=== PATIENT | female | born 1995 | race Caucasian/White ===

== ENCOUNTER 2018-01-29 21:07 | Emergency (ER) | payer SELFPAY ==
[2018-01-29 21:08] VITALS: BP 151/104; PULSE 120; RESP 18; TEMP 35.5; O2SAT 98; BMI 45.3
--- NOTE | 2018-01-29 22:01 | ED.RN ---
NO OLD EKGS IN MUSE
[2018-01-29] MEDS: 0.9% Normal Saline 1,000 ML 1000 ML IV (22:22)
[2018-01-29 22:29] LABS: Absolute Lymphocyte Count 2.66 X10^3/ul (0.83-4.51); Absolute Neutrophil Count 5.3 X10^3/uL (2.0-7.7); Basophil# 0.03 X10^3/uL; Basophil% 0.3 % (0-1); Eosinophil# 0.28 X10^3/uL; Eosinophils% 3.1 % (0-5); Hematocrit 37.4 % (37-47); Hemoglobin 11.4 g/dl (12.0-15.0); Lymphocyte # 2.66 X10^3/ul (4.0); Lymphocyte % 29.8 % (19-41); Mean Corp Hgb Conc 30.5 g/gl (32-36); Mean Corpuscular Volume 85.2 fL (81-99); Mean Platelet Vol. 10.8 fl (6.2-12.0); Monocyte# 0.67 X10^3/uL; Monocyte% 7.5 % (0-10); Neutrophil # 5.27 X10^3/uL (2.7-7.7); Neutrophil % 59.2 % (47-70); POSITIVE COUNT NO; POSITIVE DIFFERENTIAL NO; POSITIVE MORPHOLOGY NO; Platelet Count 266 K/mm3 (150-450); RBC Distribution Width SD 50.1 fl (35.1-43.9); Red Blood Count 4.39 M/mm3 (4.2-5.4); White Blood Count 8.9 K/mm3 (4.4-11.0)
[2018-01-29 22:43] LABS: Anion Gap 9 (5-15); BUN 10 mg/dL (7-18); BUN/Creat Ratio 13.5 RATIO (10-20); Calcium,Total 8.5 mg/dL (8.5-10.1); Chloride 107 mmol/L (98-107); Creatinine, Serum 0.74 mg/dL (0.55-1.02); EST Glomerular Filtration Rate 105 mL/min (>60); Est Glom Filt Rate - Afr Amer 127 mL/min (>60); Estimated Creatinine Clearance 95.11 ml/min; Glucose 100 mg/dL (74-106); Potassium 3.7 mmol/L (3.5-5.1); Sodium Level 142 mmol/L (136-145)
[2018-01-29 23:24] LABS: Bacteria 0 SEEN /hpf (None Seen); Mucous, Urine 0 SEEN /hpf (<or=2+); Red Blood Cells-Urine 0 SEEN /hpf (0-5)
[2018-01-29 23:40] LABS: Color, Urine Yellow (Yellow); Glucose, Dipstick Normal (Normal); Ketone-Dipstick 5 mg/dl (Negative); Leukocyte Esterase-Dipstick 100 /ul (Negative); Nitrite-Dipstick Negative (Negative); Occult Blood-Urine Negative /ul (Negative); Protein-Dipstick 15 mg/dl (Negative); Urine Bilirubin Dipstick Negative (Negative); Urine Clarity Sl. Cloudy (Clear); Urine Urobilinogen 1 mg/dl (Normal)
[2018-01-29 23:46] LABS: Squamous Epithelial Cells - UA 0-5 SEEN /hpf (5-10); White Blood Cells 5-10 SEEN /hpf (0-5)
--- NOTE | 2018-01-29 23:51 | ED.VISSUMM ---
- ER Visit Summary Date of Service: 01/29/18 Chief Complaint: Dizziness History of Present Illness: The patient is a 22 F that presents with dizziness. She describes it as a lightheadedness and feeling like she is going to pass out. Symptoms started yesterday and then continued today. Associated with nausea and vomiting. Denies chest pain or shortness of breath. Denies fevers, neck pain, or rash. Denies any abdominal pain or diarrhea. Denies urinary symptoms. Patient is concerned she might have low blood sugar or anemia. Physical Examination: Afebrile. Blood pressure 151/104. Heart rate 120. Otherwise vitals unremarkable. Patient appears in no acute distress. Alert and oriented. Her. Abdomen soft and nontender. Skin appears normal. No focal or lateralizing neurologic abnormalities. Test Results: EKG showed sinus rhythm at a rate of 88. No sign of acute ischemia or infarction pattern. Hemoglobin 11.4. Otherwise CBC and BMP normal. Troponin normal. test pending. Urinalysis shows signs of infection. Emergency Department Course and Treatment: Patient presents with nonspecific near syncope/lightheadedness. She is healthy and has no red flag symptoms. Her workup here was unremarkable except for signs of urine infection. Patient treated with IV fluids and Macrobid. She ambulated without difficulty. Symptoms improved. Patient will be referred for outpatient follow-up. Given a prescription for Macrobid. Return for any new or worsening symptoms. Lab had some difficulty running a test because it was a preserved specimen. They were requesting additional urine sample. The patient is not concerned for . She does not want to wait to give another sample. Patient will be discharged with a prescription for Macrobid. Follow-up with primary care. Return for any new or worsening issues. Treatment Plan: As above Disposition: Discharge Impression: 1. Near syncope 2. UTI, cystitis This note was generated with SafeTool dictation software. It may contain incorrect words, spelling, and punctuation that were not noted in review of the chart prior to signing ED Disposition - Plan for ED Patient: Chief Complaint: General Illness Instructions: ED UTI Cystitis Female Prescriptions: Nitrofurantoin Macrocrystals [Macrobid] 100 mg PO Q12 #10 cap Referrals: Rosario Montalvo NP-C [Primary Care Provider] -
--- NOTE | 2018-01-29 23:53 | ED.DEP ---
ED Disposition - Plan for ED Patient: Chief Complaint: General Illness Instructions: ED UTI Cystitis Female Prescriptions: Nitrofurantoin Macrocrystals [Macrobid] 100 mg PO Q12 #10 cap Referrals: Rosario Montalvo NP-C [Primary Care Provider] -
[2018-01-30] MEDS: Nitrofurantoin Macrocrystals 100 MG Capsule PO (00:02)
[2018-01-30 00:04] VITALS: BP 138/87; PULSE 79; RESP 16; O2SAT 97
== END 2018-01-30 00:06 | disposition home or self-care (01) ==
LOC: ED 22:26
PROVIDERS: Emergency Provider Emergency Medicine; Family Provider Nurse Practitioner Family; PCP Nurse Practitioner Family
DX: R55 Syncope and collapse (principal); N39.0 Urinary tract infection, site not specified; J45.909 Unspecified asthma, uncomplicated; D64.9 Anemia, unspecified; Z90.49 Acquired absence of other specified parts of digestive tract
CPT/HCPCS: 80048; 81001; 84484; 85025; 93005; 96360; 96361; 99283; J7030

== ENCOUNTER 2018-06-18 20:29 | Emergency (ER) | payer MEDICAID, SELFPAY ==
[2018-06-18 20:32] VITALS: BP 164/119; PULSE 115; RESP 16; TEMP 37.3; O2SAT 98; BMI 45.4
[2018-06-18 21:11] VITALS: BP 151/106; PULSE 104; RESP 14; O2SAT 96
--- NOTE | 2018-06-18 21:40 | ED.VISSUMM ---
- ER Visit Summary Date of Service: 06/18/18 Chief Complaint: Vomiting diarrhea History of Present Illness: The patient is a 22 F who presents with 3 days of vomiting diarrhea. Patient states that the symptoms began on Sunday with diarrhea. Yesterday she had vomiting. Significant other states that he has the same symptoms but not as severe. Patient notes a history of GERD and has had a cholecystectomy. No blood in the stool. No fevers. Physical Examination: Afebrile vital signs are stable noted slight tachycardia at 106. Gen: Well-nourished well-developed Head: Normocephalic atraumatic Eyes: Perrl EOMI ENT: TMs clear no rhinorrhea moist mucous membranes and has color in her cheeks. Neck: Supple no lymphadenopathy no JVD nontender CVS: Regular rate rhythm no murmurs normal S1-S2 Respiratory: No distress clear to auscultation bilaterally chest nontender Abdomen: Soft nontender nondistended normal bowel sounds no masses Back: Nontender Extremity: Nontender no edema Skin: Normal color no rash Neuro: alert orientated ?3 CN II-XII intact normal strength sensation reflexes gait cerebellar Psych: Normal affect normal mood Emergency Department Course and Treatment: Patient received IV fluids and Zofran. Patient passed p.o. challenge. patient will have prescription for Zofran. She will continue to try to orally hydrate. Follow-up with primary care return if worsening or concerns Impression: 1. Viral gastroenteritis 2. Mild dehydration This note was generated with Exabre dictation software. It may contain incorrect words, spelling, and punctuation that were not noted in review of the chart prior to signing ED Disposition - Plan for ED Patient: Disposition: Home or Assisted Living Chief Complaint: Nausea/Vomiting/Diarrhea Instructions: ED Gastroenteritis Viral Prescriptions: Ondansetron [Zofran Odt] 4 mg PO Q6H PRN PRN #14 tab PRN Reason: Nausea Referrals: Rosario Montalvo NP-C [Primary Care Provider] - As Needed
[2018-06-18] MEDS: 0.9% Normal Saline 1,000 ML 1000 ML IV (22:10)
[2018-06-18] MEDS: Ondansetron 4 MG/2 ML Vial IV (22:11)
[2018-06-18 23:07] VITALS: BP 129/79; PULSE 75; RESP 16
== END 2018-06-18 23:07 | disposition home or self-care (01) ==
PROVIDERS: Emergency Provider Emergency Medicine; Family Provider Nurse Practitioner Family; PCP Nurse Practitioner Family
DX: A08.4 Viral intestinal infection, unspecified (principal); E86.0 Dehydration; K21.9 Gastro-esophageal reflux disease without esophagitis; Z90.49 Acquired absence of other specified parts of digestive tract
CPT/HCPCS: 96361; 96374; 99283; J7030; A4216; J2405

== ENCOUNTER 2025-03-01 11:58 | Emergency (ER) | payer MEDICAID, SELFPAY ==
--- OUTSIDE RECORDS SUMMARY | 2025-03-01 11:30 | XMS RPT_ITS ---
Author Name [employer] Organization OHIP PROBLEMS No Problem Records Found PROCEDURES No Procedure Records Found RESULTS CNOV Observed: 03/01/2025 11:45 AM Status: COMPLETED Source: [facility] Office Visit ([place]) LYUDMILA HOPKINS ([id number]) 1995 F Date Time Provider Department 03/01/25 11:45 AM VERONICA SILVER During your visit today, we recorded the following information about you: Temperature Pulse Respiration Blood pressure 97.8 degrees 111/minute 20/minute 144/102 Weight Last Period 111 kg 03/01/25 Veronica Silver APRN.LOSS PREVENTION/SAFETY DISTRICT MANAGER 03/01/2025 12:07 PM Signed Subjective Lyudmila Hopkins is a 29 year old female. HPI HPI Lyudmila Hopkins is a 29 year old female who presents today for CC of left sided abdominal pain. 03/13. She is also having headache, nausea. She has used Tylenol without relief. SOCIAL HISTORY[1] PAST MEDICAL HISTORY Diagnosis Date Anxiety Seasonal allergies I have confirmed and edited as necessary, the [facility] Review of Systems Constitutional: Negative for fever. Gastrointestinal: Negative for abdominal pain and nausea. Genitourinary: Negative for decreased urine volume, difficulty urinating, dysuria, genital sores, pelvic pain, urgency, vaginal discharge and vaginal pain. Objective BP 144/102 Pulse 111 Temp 36.6 ?C (97.8 ?F) Resp 20 Wt 111 kg (244 lb 11.4 oz) LMP 03/01/2025 (Exact Date) SpO2 99% BP recheck manually 142/86 Physical Exam Vitals and nursing note reviewed. HENT: Head: Normocephalic and atraumatic. Eyes: Conjunctiva/sclera: Conjunctivae normal. Pupils: Pupils are equal, round, and reactive to light. Pulmonary: Effort: Pulmonary effort is normal. Abdominal: Palpations: Abdomen is soft. Abdomen is not rigid. Tenderness: There is abdominal tenderness in the left upper quadrant. There is no guarding or rebound. Comments: Pain and tenderness to palpation - guarding noted. Musculoskeletal: Cervical back: Normal range of motion and neck supple. Skin: General: Skin is warm. Neurological: Mental Status: She is alert and oriented to person, place, and time. History and Record Review External record(s) reviewed: prior outpatient record. ASSESSMENT/PLAN: 1. Abdominal pain, LUQ - ICD9: 789.02, ICD10: R10.12 - Due to abdominal pain and tenderness and level of pain and guarding, recommend patient be seen in ED for further evaluation and treatment. Diagnosis and treatment plan were discussed and questions were answered to the patient's satisfaction. Pt acknowledged understanding of concepts and follow up plan. Specific signs and symptoms that would indicate the need for higher level of care were discussed in detail warranting prompt ER evaluation. Veronica Silver APRN.LOSS PREVENTION/SAFETY DISTRICT MANAGER [1] Social History Tobacco Use Smoking status: Never Smokeless tobacco: Never Substance Use Topics Alcohol use: No Drug use: No Allergies As of Date: 03/01/2025 Noted Allergy Reaction SEASONAL ALLERGIES 03/25/2014 14 - Other: See Comments Comments: Sneezing Date Reviewed: 03/01/2025 Reviewed by: Veronica Silver APRN.LOSS PREVENTION/SAFETY DISTRICT MANAGER - Fully Assessed Reason for Visit: Nausea AND Vomiting [237] Cmt: Diarrhea, headache, x 3-4 days, hot and cold chills. 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 Author Type: Nurse Practitioner Type: Progress Notes Filed: 03/01/2025 12:07 Note Text: Subjective Lyudmila Hopkins is a 29 year old female. HPI HPI Lyudmila Hopkins is a 29 year old female who presents today for CC of left sided abdominal pain. 03/13. She is also having headache, nausea. She has used Tylenol without relief. SOCIAL HISTORY[1] PAST MEDICAL HISTORY Diagnosis Date Anxiety Seasonal allergies I have confirmed and edited as necessary, the [facility] Review of Systems Constitutional: Negative for fever. Gastrointestinal: Negative for abdominal pain and nausea. Genitourinary: Negative for decreased urine volume, difficulty urinating, dysuria, genital sores, pelvic pain, urgency, vaginal discharge and vaginal pain. Objective BP 144/102 Pulse 111 Temp 36.6 ?C (97.8 ?F) Resp 20 Wt 111 kg (244 lb 11.4 oz) LMP 03/01/2025 (Exact Date) SpO2 99% BP recheck manually 142/86 Physical Exam Vitals and nursing note reviewed. HENT: Head: Normocephalic and atraumatic. Eyes: Conjunctiva/sclera: Conjunctivae normal. Pupils: Pupils are equal, round, and reactive to light. Pulmonary: Effort: Pulmonary effort is normal. Abdominal: Palpations: Abdomen is soft. Abdomen is not rigid. Tenderness: There is abdominal tenderness in the left upper quadrant. There is no guarding or rebound. Comments: Pain and tenderness to palpation - guarding noted. Musculoskeletal: Cervical back: Normal range of motion and neck supple. Skin: General: Skin is warm. Neurological: Mental Status: She is alert and oriented to person, place, and time. History and Record Review External record(s) reviewed: prior outpatient record. ASSESSMENT/PLAN: 1. Abdominal pain, LUQ - ICD9: 789.02, ICD10: R10.12 - Due to abdominal pain and tenderness and level of pain and guarding, recommend patient be seen in ED for further evaluation and treatment. Diagnosis and treatment plan were discussed and questions were answered to the patient's satisfaction. Pt acknowledged understanding of concepts and follow up plan. Specific signs and symptoms that would indicate the need for higher level of care were discussed in detail warranting prompt ER evaluation. Veronica Silver APRN.LOSS PREVENTION/SAFETY DISTRICT MANAGER [1] Social History Tobacco Use Smoking status: Never Smokeless tobacco: Never Substance Use Topics Alcohol use: No Drug use: No ALLERGIES DATE TYPE / CODE NAME / CODE REACTION SEVERITY SOURCE 03/25/2014 Environ/455108 006(SNOMED CT) SEASONAL ALLERGIES OTHER: SEE C On License Of [facility] ENCOUNTERS ADMIT/DISCHARGE ACCOUNT NUMBER ADMITTING ENCOUNTER CLASS LOC ATION SOURCE 03/01/2025 [id number] [facility] PAYERS ENCOUNTER GUARANTOR PAYER SUBSCRIBER SOURCE 03/01/2025 Primary Insurance:[employer] MEDICAID [facility] Number: [id number] Date:[id number] Name:Mikael MELGARB: [id number] Moises ABRAHAM [address] [address] [facility]
[2025-03-01 11:59] VITALS: BP 138/100; PULSE 100; RESP 22; TEMP 37.4; O2SAT 99; BMI 44.9
--- NOTE | 2025-03-01 12:37 | CT_ITS ---
PROCEDURE: ABDOMEN/PELVIS W IV CONT ONLY 03/01/2025 REASON FOR EXAM: ABDOMINAL PAIN TODAY WITH MIGRAINE. TECHNIQUE: Procedure Code: [id number] Modality: CT Procedure: ABDOMEN/PELVIS W IV CONT ONLY Coronal and Sagittal reconstruction series were provided. CONTRAST: Isovue 370 VOLUME: 100 mL One or more dose reduction techniques were used (e.g., Automated exposure control, adjustment of the mA and/or kV according to patient size, use of iterative reconstruction technique. RADIATION DOSE SUMMARY: CTDlvol: 9.97, 24.17 mGy DLP: 1324.22 mGycm COMPARISON: None. FINDINGS: LUNG BASES: No basilar airspace consolidation or pleural effusion. LIVER: Unremarkable. GALLBLADDER: Prior cholecystectomy. BILE DUCTS: No ductal dilation. PANCREAS: Unremarkable. SPLEEN: Unremarkable. ADRENAL GLANDS: Unremarkable. KIDNEYS: Unremarkable. The kidneys enhance symmetrically. No hydronephrosis or hydroureter. STOMACH AND BOWEL: No obstruction or perforation. Colonic diverticulosis. Segmental wall thickening of the proximal sigmoid colon, with adjacent fat stranding and fluid. No extraluminal air or fluid collection. Findings are consistent with uncomplicated diverticulitis. APPENDIX: Normal-appearing appendix. No CT evidence for appendicitis. RETRO/PERITONEUM: Mild pelvic fluid. No free air or focal fluid collections. LYMPH NODES: No lymphadenopathy. PELVIC ORGANS: Unremarkable as visualized. VASCULATURE: No aortic aneurysm. ABDOMINAL WALL AND SOFT TISSUES: Rectus diastasis noted. BONES: No fracture or suspicious osseous abnormality. CT/Abdomen/Pelvis W IV Cont ONLY IMPRESSION: Acute sigmoid colon diverticulitis without signs of perforation. No abscess co llection seen. Reading Location: [id number]
--- NOTE | 2025-03-01 12:49 | EDS_ITS ---
HPI History of Present Illness Chief Complaint: Nausea/Vomiting/Diarrhea Narrative Narrative: Chief complaint and HPI: 29-year-old female presents for evaluation of nausea, vomiting, diarrhea, headache. Patient states for the past several days she has been having nausea, vomiting, diarrhea. All nonbloody. States she has had little p.o. intake secondary to this. Developed abdominal pain over the last 2 days, left lower quadrant. Denies any fever, chills, shortness of breath, chest pain, URI symptoms, dysuria. Denies . Was seen at urgent care and referred to the emergency department for possible dehydration and CT abdomen pelvis. Review of systems: See HPI Medications: As listed on the chart Allergies: As listed on the chart PFSH: Per chart Vital signs: As listed on the chart. Reviewed. Physical exam: Gen: A&O x3 Head: Normocephalic, atraumatic Eyes: No sclera icterus, conjunctiva clear, PERRL ENT: Dry mucous membranes Neck: Trachea midline, full range of motion without meningismus CV: RRR, no murmurs Resp: Lungs CTA BL, no w/r/c GI: Abd soft, non-distended, mild tenderness to palpation of the abdomen diffusely, no r/r Musc: Full ROM, no deformity Skin: Warm, dry Neuro: Alert, oriented, grossly intact, sensation intact Psych: Cooperative, appropriate mood and affect [facility] Medical History (Updated 03/01/25 @ 12:29 by Harlan Sam) Gall bladder disease Physical exam, pre-employment Home Medications Medication Instructions Recorded Last Taken Type ferrous sulfate 325 mg (65 mg 325 mg PO BID 01/29/18 U nknown History iron) tablet (Iron (ferrous sulfate)) omeprazole 20 mg capsule,delayed 20 mg PO DAILY Unknown History release ondansetron 4 mg disintegrating 4 mg PO Q6H PRN PRN Na usea #14 tabs 06/18/18 Unknown Rx tablet Allergy/AdvReac Type Severity Reaction Status Date / Time No Known Allergies Allergy Verified 03/01/25 11:58 Social History Smoking Status: Never smoker EXAM Physical Exam Const Vital Signs: 03/01/25 11:59 03/01/25 13:58 03/01/25 15:10 Temperature 99.4 F H Temperature Source Oral Pulse Rate 100 86 Respiratory Rate 22 H 19 H Blood Pressure 138/100 H 166/106 H 148/100 H Blood Pressure Mean 112 126 116 Pulse Ox 99 100 Oxygen Delivery Method Room Air Room Air MDM MDM MDM Narrative Medical decision making narrative: 29-year-old female presents for evaluation of nausea, vomiting, diarrhea, headache. Patient states for the past several days she has been having nausea, vomiting, diarrhea. All nonbloody. States she has had little p.o. intake secondary to this. Developed abdominal pain over the last 2 days, left lower quadrant. Was seen at urgent care and referred to the emergency department for possible dehydration and CT abdomen pelvis. Differential diagnosis includes but is not limited to viral gastroenteritis, diverticulitis, pancreatitis, electrolyte abnormality, UTI, dehydration. Toradol, Zofran, NS bolus ordered for symptoms. Abdominal pain workup ordered. CBC without leukocytosis. Patient has baseline anemia of 11.8. Platelets unremarkable. CMP unremarkable. Lipase unremarkable. Serum negative. UA negative for UTI but positive for blood. CT abdomen pelvis shows acute sigmoid colon diverticulitis without signs of perforation. No abscess. On reevaluation, patient's pain has improved. Patient was updated of all the results. She is comfortable discharging home. Will place her on Augmentin, first dose given here. Strict return precautions explained. Recommend liquid diet for the next 24 hours. Okay to advance afterwards. Tylenol and ibuprofen as needed for pain. Will not place her on narcotics as this worsens diverticulitis due to constipation. Zofran as needed for nausea and vomiting. Follow-up with PCP and general surgery. Patient has been hypertensive here in the emergency department. On chart review, she has a history of hypertension but does not take anything. Recommend her following up with her primary care physician for this. She affirmed understand the plan. Patient able to discharge home. Impression: 1. Acute uncomplicated diverticulitis 2. Hypertension to be confirmed Lab Data Labs: Laboratory Results - last 24 hr 03/01/25 03/01/25 12:53 14:30 WBC 11.0 RBC 4.54 Hgb 11.8 L Hct 37.8 MCV 83.3 MCH 26.0 L MCHC 31.2 L RDW Std Deviation 50.4 H RDW Coeff of Bibi 16.4 H Plt Count 246 MPV 10.7 Immature Gran % (Auto) 0.300 Neut % (Auto) 78.7 H Lymph % (Auto) 12.5 L [place] % (Auto) 7.8 Eos % (Auto) 0.5 Baso % (Auto) 0.2 Absolute Neuts (auto) 8.6 H Absolute Lymphs (auto) 1.37 Nucleated RBC % 0 Sodium 138 Potassium 4.1 Chloride 104 Carbon Dioxide 23.1 Anion Gap 11 BUN 12 Creatinine 0.71 Estim Creat Clear Calc 139.10 Est GFR (MDRD) Non-Af 120 BUN/Creatinine Ratio 17.3 Glucose 97 Calcium 8.8 Total Bilirubin 0.79 AST 13 ALT 11 Alkaline Phosphatase 61 Total Protein 6.9 Albumin 4.0 Globulin 2.8 Albumin/Globulin Ratio 1.4 Lipase 14 Serum , Qual NEGATIVE Urine Color Yellow Urine Clarity Clear Urine pH 7.0 Ur Specific [place] 1.010 Urine Protein 15 H Urine Glucose (UA) Normal Urine Ketones Negative Urine Occult Blood 250 H Urine Nitrite Negative Urine Bilirubin Negative Urine Urobilinogen Normal Ur Leukocyte Esterase Negative Urine RBC 0-5 SEEN Urine WBC 0-5 SEEN Ur Squamous Epith Cells 0-5 SEEN Urine Bacteria RARE Urine Mucus 0 SEEN Radiography Diagnostic Testing: Clinical Impression(s) from Imaging Studies Abdomen/Pelvis CT 03/01/25 12:37 IMPRESSION: Acute sigmoid colon diverticulitis without signs of perforation. No abscess collection seen. Reading Location: [facility] Discharge Plan Triage Chief Complaint: Nausea/Vomiting/Diarrhea Other Complaint: Headache ED Provider: Alfredo Mccarty Dx/Rx/DC Orders Prescriptions: No Action ferrous sulfate [Iron (ferrous sulfate)] 325 MG tablet 325 mg PO BID omeprazole 20 MG capsule 20 mg PO DAILY ondansetron 4 MG tablet 4 mg PO Q6H PRN PRN (Reason: Nausea) Qty: 14 0RF Primary Care Provider: Care Physician,No Primary Referrals: Care Physician,No Primary [Primary Care Provider, Medical] Print Language: Nepali
[2025-03-01] MEDS: 0.9% Normal Saline (1000mL) 1,000 ML 999 ML IV (12:52)
[2025-03-01 12:59] LABS: Hematocrit 37.8 % (37-47); Hemoglobin 11.8 g/dL (12.0-15.0); Immature Granulocytes Count 0.030 X10^3/uL (0.0-0.0); Mean Corp Hgb Conc 31.2 g/dL (32-36); Mean Corpuscular Volume 83.3 fL (81-99); Mean Platelet Vol. 10.7 fl (6.2-12.0); NRBC Flagged by Analyzer 0 % (0-5); Platelet Count 246 K/mm3 (150-450); RBC Distribution Width CV 16.4 % (11.6-14.6); RBC Distribution Width SD 50.4 fl (35.1-43.9); Red Blood Count 4.54 M/mm3 (4.2-5.4); White Blood Count 11.0 K/mm3 (4.4-11.0)
[2025-03-01 13:07] LABS: Internal QC Validated? YES +Cl - CLEAR BKGD; Pregnancy, Serum, hCG Quali. NEGATIVE Negative; Record Kit Lot#, Serum Preg. 0000964736
[2025-03-01 13:20] LABS: AST(SGOT) 13 U/L (<=31); Alanine Aminotransfer ALT/SGPT 11 U/L (<=34); Albumin, Serum 4.0 g/dL (3.5-5.0); Alkaline Phosphatase 61 U/L (35-104); Anion Gap 11 (5-15); BUN 12 mg/dL (4-19); BUN/Creat Ratio 17.3 RATIO (10-20); Calcium,Total 8.8 mg/dL (7.6-11.0); Carbon Dioxide 23.1 mmol/L (21.0-32.0); Chloride 104 mmol/L (98-108); Estimated Creatinine Clearance 139.10 ml/min (50-250); Globulin 2.8 g/dL (2.2-4.2); Glucose 97 mg/dL (70-99); Lipase 14 U/L (13-75); Potassium 4.1 mmol/L (3.3-5.1)
[2025-03-01 13:58] VITALS: BP 166/106; PULSE 86; RESP 19; O2SAT 100
[2025-03-01 14:39] LABS: Mucous, Urine 0 SEEN /hpf (<or=2+)
[2025-03-01 14:40] LABS: Color, Urine Yellow (Yellow); Glucose, Dipstick Normal (Normal); Ketone-Dipstick Negative (Negative); Leukocyte Esterase-Dipstick Negative /ul (Negative); Nitrite-Dipstick Negative (Negative); Occult Blood-Urine 250 /ul (Negative); Protein-Dipstick 15 mg/dl (Negative); Specific Gravity, Urine 1.010 (1.002-1.030); Urine Bilirubin Dipstick Negative (Negative)
[2025-03-01 14:46] LABS: Red Blood Cells-Urine 0-5 SEEN /hpf (0-5); Squamous Epithelial Cells - UA 0-5 SEEN /hpf (5-10)
[2025-03-01 15:10] VITALS: BP 148/100
[2025-03-01 15:11] VITALS: BP 148/100; PULSE 89; RESP 18; TEMP 37; O2SAT 99
== END 2025-03-01 15:50 | disposition home or self-care (01) ==
PROVIDERS: Emergency Provider Surgery; Visit Provider Surgery
DX: K57.32 Diverticulitis of large intestine without perforation or abscess without bleeding (principal); R51.9 Headache, unspecified; Z79.899 Other long term (current) drug therapy
CPT/HCPCS: 74177; 80053; 81001; 83690; 84703; 85025; 96361; 96374; 96375; 99284; J2405